=== PATIENT | female | born 1970 | race Caucasian/White ===

== ENCOUNTER 2018-08-18 13:48 | Emergency (ER) | payer SELFPAY ==
--- NOTE | 2018-08-18 14:13 | ER Document Report ---
ED Medical Screen (RME) - General Chief Complaint: Numbness of Arm Stated Complaint: NUMBNESS IN ARM, HAND AND FINGERS Time Seen by Provider: 08/18/18 14:04 Primary Care Provider: ADRY LEGGETT MD [Primary Care Provider] - Follow up as needed TRAVEL OUTSIDE OF THE [place] IN LAST 30 DAYS: No - HPI Notes: 08/18/18 14:10 Patient is a 47-year-old female who presents the emergency department complaining of right shoulder, arm, back, and leg tingling and occ pain. Patient states that this is been an ongoing intermittent issue for the past 6 months and was told that she may have a pinched nerve, but has not been formally diagnosed. Patient states that she had an acute episode this morning where she could not move the right arm very well, which has returned to baseline. No other concerns or complaints. She was started back on gabapentin by her family provider. Denies DELGADO, fever, neck pain, URI, CP, SOB, Abd pain, or rash. I have treated and performed a rapid initial assessment of this patient. A comprehensive ED assessment and evaluation of the patient, analysis of test results and completion of medical decision making process will be conducted by additional ED providers. PHYSICAL EXAMINATION: GENERAL: Well-appearing, well-nourished and in no acute distress. A&Ox4. Answers questions appropriately. HEAD: Atraumatic, normocephalic. Non-tender. EYES: Pupils equal round and reactive to light, extraocular movements intact, sclera anicteric, conjunctiva are normal. No nystagmus. ENT: Nares patent and without discharge. oropharynx clear without exudates. No tonsilar hypertrophy or erythema. Moist mucous membranes. NECK: Normal range of motion, supple without lymphadenopathy. No rigidity/meningismus. No midline tenderness. LUNGS: Breath sounds clear to auscultation bilaterally and equal. No wheezes rales or rhonchi. HEART: Regular rate and rhythm without murmurs, rubs, gallops. Musculoskeletal: Ext's b/l: FROM to passive/active. Strength 5+/5. No deficits noted. No bony tenderness of extremities. + reproducible tenderness to palp rt trapezius muscle and rt paraspinal mm of length of back. Extremities: No cyanosis, clubbing, or edema b/l. Peripheral pulses 2+. Capillary refill less than 2 seconds. NEUROLOGICAL: NIH 0. GCS 15. Cranial nerves grossly intact. Normal speech, normal gait. Normal sensory, motor exams. Reflexes 2+ b/l. BRODERICK's negative. Pronator drift negative. Heel/brito, finger/nose wnl. PSYCH: Normal mood, normal affect. SKIN: Warm, Dry, normal turgor, no rashes or lesions noted. - Related Data Allergies/Adverse Reactions: morphine [Morphine] Adverse Reaction (Verified 06/10/14 17:04) itching Past Medical History Past Surgical History: Reports: Hx Section, Hx Thyroid Surgery Physical Exam - Vital signs Vitals: Temp Pulse Resp BP Pulse Ox 98.0 F 79 16 123/88 H 95 08/18/18 14:00 08/18/18 14:00 08/18/18 14:00 08/18/18 14:00 08/18/18 14:00 Course - Vital Signs Vital signs: Temp Pulse Resp BP Pulse Ox 98.0 F 79 16 123/88 H 95 08/18/18 14:00 08/18/18 14:00 08/18/18 14:00 08/18/18 14:00 08/18/18 14:00 Doctor's Discharge - Discharge Referrals: ADRY LEGGETT MD [Primary Care Provider] - Follow up as needed
--- NOTE | 2018-08-18 15:04 | RADIOLOGY REPORT (SQ) ---
EXAM DESCRIPTION: CT HEAD WITHOUT COMPLETED DATE/TIME: 08/18/2018 2:51 pm REASON FOR STUDY: rt side tingling COMPARISON: None. TECHNIQUE: Axial images acquired through the brain without intravenous contrast. Images reviewed wi th bone, brain and subdural windows. Images stored on PACS. All CT scanners at this facility use dose modulation, iterative reconstruction, and/or weight based d osing when appropriate to reduce radiation dose to as low as reasonably achievable (ALARA). [facility]: Dose Right [facility]: CareDose [facility]: Dose Right [facility]: Teradose 4D [facility]: Smart [employer] Systems RADIATION DOSE: CT Rad equipment meets quality standard of care and radiation dose reduction techniq ues were employed. CTDIvol: 53.2 mGy. DLP: 1097 mGy-cm. mGy. LIMITATIONS: None. FINDINGS: VENTRICLES: Normal size and contour. CEREBRUM: No masses. No hemorrhage. No midline shift. No evidence for acute infarction. Normal gra y/white matter differentiation. No areas of low density in the white matter. CEREBELLUM: No masses. No hemorrhage. No alteration of density. No evidence for acute infarction. EXTRAAXIAL SPACES: No fluid collections. No masses. ORBITS AND GLOBE: No intra- or extraconal masses. Normal contour of globe without masses. CALVARIUM: No fracture. PARANASAL SINUSES: No fluid or mucosal thickening. SOFT TISSUES: No mass or hematoma. OTHER: No other significant finding. IMPRESSION: No acute intracranial findings. EVIDENCE OF ACUTE STROKE: NO. COMMENT: Quality ID # [id number]: Final reports with documentation of one or more dose reduction techniques (e.g., Automated exposure control, adjustment of the mA and/or kV according to patient size, use of iterative reconstruction technique) TECHNICAL DOCUMENTATION: JOB ID: [id number] [place]-72 2010 [employer]- All Rights Reserved Reading location - IP/workstation name: [employer]
[2018-08-18] MEDS ORDERED: KETOROLAC TROMETHAMINE 60 MG/2 ML SDV IM ONE (16:07)
[2018-08-18] MEDS ORDERED: DEXAMETHASONE SOD PHOS INJ 10 MG/1 ML VIAL IM ONE (16:07)
--- NOTE | 2018-08-18 16:13 | ER Document Report ---
ED General - General Chief Complaint: Numbness of Arm Stated Complaint: NUMBNESS IN ARM, HAND AND FINGERS Time Seen by Provider: 08/18/18 14:04 Primary Care Provider: ADRY LEGGETT MD [NO LOCAL MD] - Follow up as needed Mode of Arrival: Ambulatory Information source: Patient Notes: Patient is a 47-year-old female who comes emergency room complaining of neck pain radiating down the right arm and low back pain radiating down the right leg. Patient admits that she has a history of right neck pain and she also admits that she has a history of low back pain and that she is just recently started a job working at [employer] made at [employer]. She is moving a bed a couple days ago when this pain started to get worse. She admits that she is probably got to the point her life that she can do this type work anymore. She missed yesterday and today at work and she is here today because of the pain and discomfort. She also states that she does take gabapentin 300 mg 3 times a day for her cervical radiculopathy. TRAVEL OUTSIDE OF THE [place] IN LAST 30 DAYS: No - HPI Onset: Other - 3 days ago Onset/Duration: Gradual, Persistent, Worse Quality of pain: Cramping, Sharp, Stabbing Severity: Moderate Pain Level: 3 Associated symptoms: denies: Drooling, Earache, Headache, Leg swelling, Nausea, Shortness of breath, Weakness Exacerbated by: Standing, Walking Relieved by: Denies Similar symptoms previously: Yes Recently seen / treated by doctor: No - Related Data Allergies/Adverse Reactions: morphine [Morphine] Adverse Reaction (Verified 06/10/14 17:04) itching Past Medical History - General Information source: Patient - Social History Smoking Status: Current Every Day Smoker Cigarette use (# per day): Yes - Half-pack a day Chew tobacco use (# tins/day): No Smoking Education Provided: Yes Frequency of alcohol use: Occasional Drug Abuse: None Lives with: Alone Family History: None, Reviewed & Not Pertinent Patient has suicidal ideation: No Patient has homicidal ideation: No Renal/ Medical History: Denies: Hx Peritoneal Dialysis Past Surgical History: Reports: Hx Section, Hx Thyroid Surgery Review of Systems - Review of Systems Constitutional: No symptoms reported EENT: No symptoms reported Cardiovascular: No symptoms reported Respiratory: No symptoms reported Gastrointestinal: No symptoms reported Genitourinary: No symptoms reported Female Genitourinary: No symptoms reported Musculoskeletal: See HPI, Back pain, Joint pain, Muscle pain, Neck pain Skin: No symptoms reported Hematologic/Lymphatic: No symptoms reported Neurological/Psychological: See HPI, Anxiety. denies: Paralysis -: Yes All other systems reviewed and negative Physical Exam - Vital signs Vitals: Temp Pulse Resp BP Pulse Ox 98.0 F 79 16 123/88 H 95 08/18/18 14:00 08/18/18 14:00 08/18/18 14:00 08/18/18 14:00 08/18/18 14:00 Interpretation: Normal - Notes Notes: PHYSICAL EXAMINATION: GENERAL: Patient is well-nourished well-developed 47-year-old female is in no apparent distress on physical examination today. She does present though has been very uncomfortable and having difficult time finding a position of comfort. HEAD: Atraumatic, normocephalic. EYES: Pupils equal round and reactive to light, extraocular movements intact, conjunctiva are normal. ENT: Nares patent, patient has multiple spikes in the oral cavity in place of her teeth where she is having implants placed.. NECK: Examination 1 area of concern is her neck. Patient is wearing around her neck large 2-3 Landers with a rubberized ball held in a bag multiple keys and is just to name a few. Inspection of the cervical spine show patient has paravertebral tenderness around the posterior portion and distal portion of the cervical spine around C6 C7-T1. Patient also displays moderate amount of tenderness going across the trapezius on the right side. Cervical compression also shows the patient has cervical radiculopathy present with pain and numbness shooting down the right arm with compression of the cervical spine. Patient also displays some moderate tenderness with spasms noted along the right scapular border to palpation. There is some very tender areas noted as far as palpation along that area is concerned. LUNGS: Breath sounds clear to auscultation bilaterally and equal. No wheezes rales or rhonchi. HEART: Regular rate and rhythm without murmurs ABDOMEN: Soft, nontender, nondistended abdomen. No guarding, no rebound. No masses appreciated. Female : deferred Musculoskeletal: Normal range of motion, no pitting or edema. No cyanosis. Moving to the lower back patient has positive straight leg raises on the right side only to about 10 degrees. DTRs in the lower extremities are normal. Patient has tenderness to palpation in the right buttocks around deep ballottement of the sciatic notch. Palpation of this area since pain and discomfort down the leg. Further examination of the area shows patient has good strength against resistance in all directions with patient sitting and knees extension flexion as well as inversion and eversion show good strength results.\ NEUROLOGICAL: Normal speech, normal gait. Normal sensory, motor exams PSYCH: Normal mood, normal affect. SKIN: Warm, Dry, normal turgor, no rashes or lesions noted. Course - Re-evaluation Re-evalutation: 08/18/18 16:22 Patient's presentation was not 1 of a stroke type presentation. This is been going on and off for about 6 months she had a contributing factor III days ago that she remembered moving a canelo size bed. 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 Sodium she is missed 2 days of work and is here to get a evaluation so she can discuss with them her options of working part-time instead of full-time. This patient explained to me personally. So at this time I will give the patient a shot of Toradol and some steroids I am going to place her on steroids and muscle relaxer and she can follow-up with her primary care sometime this week. - Vital Signs Vital signs: Temp Pulse Resp BP Pulse Ox 98.0 F 79 16 123/88 H 95 08/18/18 14:00 08/18/18 14:00 08/18/18 14:00 08/18/18 14:00 08/18/18 14:00 Discharge - Discharge Clinical Impression: Cervical radiculopathy, Sciatica of right side Condition: Good Disposition: HOME, SELF-CARE Instructions: Neck Injury (Cervical Strain) ([facility]), Sciatica ([facility]) Additional Instructions: Home tonight rest. Medication as prescribed. As we discussed ice to the area 3 times a day and or you may alternate ice and moist heat. Light stretching starting tomorrow. Highly suggest that you establish with a primary care and t ry to avoid lifting or moving anything heavy for the next week. You can return to work on Sunday light duty. Prescriptions: Cyclobenzaprine HCl [Flexeril 10 mg Tablet] 10 mg PO TID #21 tablet Prednisone 10 mg PO ASDIR PRN #1 tab.ds.pk PRN Reason: Forms: Return to Work, Smoking Cessation Education, Special Work Note Referrals: ADRY LEGGETT MD [NO LOCAL MD] - Follow up as needed
[2018-08-18 16:49] VITALS: BP 124/84
== END 2018-08-18 16:49 | disposition home or self-care (01) ==
LOC: ER 13:48
DX: M54.12 Radiculopathy, cervical region (principal); M54.31 Sciatica, right side; R20.0 Anesthesia of skin; F17.210 Nicotine dependence, cigarettes, uncomplicated; Z88.6 Allergy status to analgesic agent
CPT/HCPCS: 99283; 96372; 70450; J1885; J1100

== ENCOUNTER 2019-10-22 10:40 | Emergency (ER) | payer SELFPAY ==
[2019-10-22] MEDS ORDERED: KETOROLAC TROMETHAMINE 60 MG/2 ML SDV IM ONE (11:08)
[2019-10-22] MEDS ORDERED: DEXAMETHASONE SOD PHOS INJ 10 MG/1 ML VIAL IM ONE (11:08)
--- NOTE | 2019-10-22 11:12 | ER Document Report ---
HPI - HPI Patient complains to provider of: Chronic back pain Time Seen by Provider: 10/22/19 11:02 Onset: Other - Intermittent over the last year Onset/Duration: Waxing and waning Quality of pain: Stabbing Severity: Moderate Pain Level: 3 Context: 48-year-old female presented to ED for back pain that is she has had for well over a year. She states she was instructed to go back to work 7 days ago after doing multiple therapies and physical therapy and everything else and she is only been on the job 7 days and she is already having too much pain to go back to work. She is alert oriented respirations regular and unlabored speaking in full sentences she is able to walk with even steady gait. She does have range of motion to her shoulders. Patient states she has muscle relaxers at home. She states in the past when she is gotten Toradol and Decadron she has been able to move much better. Associated Symptoms: Other - Complaining of back and muscle pains Exacerbated by: Standing, Movement, Walking Relieved by: Denies Similar symptoms previously: Yes Recently seen / treated by doctor: Yes - ROS ROS below otherwise negative: Yes - CONSTITUTIONAL Constitutional: DENIES: Fever, Chills - EENT EENT: DENIES: Sore Throat, Ear Pain, Nasal Drainage-Clear, Nasal Drainage- Purulent, Congestion, Eye problems - NEURO Neurology: DENIES: Headache, Weakness, Vision blurred, Dizzinesss / Vertigo - CARDIOVASCULAR Cardiovascular: DENIES: Chest pain - RESPIRATORY Respiratory: DENIES: Trouble Breathing, Coughing - GASTROINTESTINAL Gastrointestinal: DENIES: Abdominal Pain, Nausea, Patient vomiting, Diarrhea, Constipation, Black / Bloody Stools - URINARY Urinary: DENIES: Dysuria, Urgency, Frequency - REPRODUCTIVE Reproductive: DENIES: :, Postmenopausal, Abnormal bleeding / discharge - MUSCULOSKELETAL Musculoskeletal: REPORTS: Extremity pain, Back Pain - DERM Skin Color: Normal Skin Problems: None Past Medical History - General Information source: Patient - Social History Smoking Status: Former Smoker Chew tobacco use (# tins/day): No Frequency of alcohol use: None Drug Abuse: None Lives with: Family Family History: None, Reviewed & Not Pertinent Patient has homicidal ideation: No - Past Medical History Cardiac Medical History: Reports: None Pulmonary Medical History: Reports: None EENT Medical History: Reports: None Neurological Medical History: Reports: None Endocrine Medical History: Reports: None Renal/ Medical History: Reports: None Malignancy Medical History: Reports: Other - Thyroid cancer GI Medical History: Reports: None Musculoskeletal Medical History: Reports Hx Musculoskeletal Deformity, Reports Hx Musculoskeletal Trauma Skin Medical History: Reports None Psychiatric Medical History: Reports: None Traumatic Medical History: Reports: None Infectious Medical History: Reports: None Past Surgical History: Reports: Hx Section, Hx Thyroid Surgery - Immunizations Immunizations up to date: Yes Hx Diphtheria, Pertussis, Tetanus Vaccination: Yes Vertical Provider Document - CONSTITUTIONAL Agree With Documented VS: Yes Exam Limitations: No Limitations - INFECTION CONTROL TRAVEL OUTSIDE OF THE [place] IN LAST 30 DAYS: No - HEENT HEENT: Atraumatic, Normal ENT Exam, Normocephalic, PERRLA - NECK Neck: Normal Inspection, Supple - RESPIRATORY Respiratory: Breath Sounds Normal, No Respiratory Distress, Chest Non-Tender - CARDIOVASCULAR Cardiovascular: Regular Rate, Regular Rhythm, No Murmur - GI/ABDOMEN Gastrointestinal: Abdomen Soft, Abdomen Non-Tender, No Organomegaly, Normal Bowel Sounds - BACK Notes: Tenderness to the back as she always has. She denies any signs or symptoms of cauda equina, she has no loss control of bowel bladder no saddle anesthesia no loss of control or sensation to the lower extremities. She states she sometimes gets numbness when she stands too long on her legs but this is not a constant problem. - MUSCULOSKELETAL/EXTREMETIES Musculoskeletal/Extremeties: SARAH HAGER, Tender - Back tenderness - NEURO Level of Consciousness: Awake, Alert, Sedated Motor/Sensory: No Motor Deficit, No Sensory Deficit, No Pronator Drift Course - Re-evaluation Re-evalutation: 10/22/19 22:42 She states she has been working for the last 7 days and now she has numbness to the legs and arms whenever she stands for too long. She has no signs or symptoms of cauda equina, she has no vision loss control her arms or legs. She has equal enamel drier into both hands. She has full range of motion to her arms and legs. She states that she has had multiple therapies she has been to her doctor recently and is just that when she started working the pain came back and was much worse. She states she cannot stay and do a lot of testing because this is not necessary and she has a neurologist. She stated that in the past Toradol and Decadron injections have helped her and she has her medications at home. - Vital Signs Vital signs: Temp Pulse Resp BP Pulse Ox 98.3 F 75 18 130/73 H 98 10/22/19 10:49 10/22/19 10:44 10/22/19 10:44 10/22/19 10:44 10/22/19 10:44 Discharge - Discharge Clinical Impression: Chronic neck and back pain, Neuropathy Condition: Stable Disposition: HOME, SELF-CARE Additional Instructions: Chronic Pain Control Stress, inactivity, and depression make pain more severe regardless of the cause of the pain. Stress and poor physical condition can cause pain such as headaches and backache. Relaxation: Rest in a quiet place with your eyes closed for 20 minutes twice daily. Concentrate on a pleasant image, or simply "feel" your breathing. Clear your mind. Stress management: Deal with your "stressors." Either take action, or eliminate the stressor from your life. Don't let things hang over you. Accept those things you can't change. Nutrition: Eat small, balanced meals -- don't skip, don't overeat. Meals should be high-carbohydrate, low-sugar, low-fat. Exercise: Exercise helps painful conditions and eases stress. Get 30 minutes of moderate exercise, five days a week. Do an activity that does not flare your pain. Precautions: Pain which continues to disrupt daily activities, or which changes in nature, requires a medical evaluation. Pain Clinic referral is available. We do not manage chronic pain in the Emergency Department. We will try to appropriately help you through an acute flare of your chronic painful condition, but for on-going chronic pain that does not improve, you will need to see your private doctor or structural steel painter. We do not provide repeated medication management of chronic painful conditions. If you wish, we can provide the name of local pain management physicians. Chronic Back Pain Chronic back pain (pain persisting longer than three months) is a common problem. A medical evaluation can look for herniated disc, arthritis, osteoporosis, tumors, and infections. But at least half the time, there's no obvious treatable cause. Anxiety and depression tend to worsen back pain. Ibuprofen or other anti-inflammatory medicine can help. A heating pad, used for 15-20 minutes at a time, can ease pain. For this type of back pain, narcotic medicines should be avoided. Muscle relaxers are rarely helpful unless you're having spasms. Activity is important. Find an aerobic exercise program that your back can tolerate. Too much rest makes back pain worse. Specific back exercises are usually prescribed to strengthen the back and abdominal muscles. Often, a physical therapist can help. Avoid heavy lifting, working while bent over, or standing with both knees straight. Most back pain patients do better with a firm mattress. If new symptoms of a "herniated disc" (radiation of pain, numbness, or tingling down the back of the leg or weakness in the leg) occur, you should be re-examined. ICE PACKS: Apply ice packs frequently against the painful area. Many different schedules are recommended, such as "20 minutes on, 20 minutes off" or "one hour ice, two hours rest." If you need to work, you may need to go longer between ice treatments. You should plan to have the area ice packed AT LEAST one fourth of the time. The ice should be applied over the wrap, tape, or splint, or over a layer of cloth -- not directly against the skin. Some ice bags have a built-in cloth and can be put directly on the skin. WARM PACKS: After approximately two days, apply gentle heat (such as a heating pad or hot water bottle) for about 20 to 30 minutes about every two hours -- at least four times daily. Warmth and elevation will help you make a more rapid recovery, and will ease the pain considerably. Do not use HOT heat, and never apply heat for longer than 30 minutes. The continuous heat can invisibly damage skin and muscles -- even when no burn is seen on the surface. Damaged muscles can make you MORE sore. Stretching Exercises for the Back The physician has recommended that you begin stretching exercises for your back. These are often used even while the back is painful. However, you should notify the physician if the activities seem to increase your pain. PELVIC TILT: Lie flat on your back with knees bent. Tighten your stomach and buttock muscles so it flattens your lower back against the floor. Hold 10 seconds. Repeat 10 times, twice daily. KNEE RAISE: Lying on the back with knees bent, raise one knee to your chest, then the other. Hold both knees against the chest 10 seconds, then lower one knee at a time. Repeat 10 times, twice daily. PARTIAL TRUNK RAISE: Lie face down, arms at your sides. Keeping your waist on the floor, use your arms raise your chest up. Support yourself on your elbows for 30 seconds. Repeat twice daily, increasing the time to two minutes as you recover. Toradol Injection You have been given an injection of ketorolac tromethamine (Toradol). This is an excellent, safe drug for pain control. It also has potent antiinflammatory action. You should have significant pain relief within about one hour. Toradol is not addicting and is non-sedating. It does not interfere with driving or work. Call or return if you develop itching, hives, shortness of breath, or rash. Stretching Exercises for the Back The physician has recommended that you begin stretching exercises for your back. These are often used even while the back is painful. However, you should notify the physician if the activities seem to increase your pain. PELVIC TILT: Lie flat on your back with knees bent. Tighten your stomach and buttock muscles so it flattens your lower back against the floor. Hold 10 seconds. Repeat 10 times, twice daily. KNEE RAISE: Lying on the back with knees bent, raise one knee to your chest, then the other. Hold both knees against the chest 10 seconds, then lower one knee at a time. Repeat 10 times, twice daily. PARTIAL TRUNK RAISE: Lie face down, arms at your sides. Keeping your waist on the floor, use your arms raise your chest up. Support yourself on your elbows for 30 seconds. Repeat twice daily, increasing the time to two minutes as you recover. Exercise Program for the Shoulder Since the shoulder moves in so many directions, the joint attachment is weak. Muscles provide most of the stability to the shoulder. You must exercise your shoulder to prevent painful instability or stiffening. PASSIVE - These may be begun within a few days of the injury. While standing, lean forward, allowing the arm to hang down towards the floor. Move the arm in small circles while slowly twisting your chest towards and away from the hanging arm. Do this for one minute. ACTIVE - These may be performed when the doctor gives permission. Begin with the arms at the sides. Raise the arms forward (shoulder's width apart) until they reach shoulder level. Then slowly swing both arms back until they are aiming straight out away from each other. Then bring them forward again, and finally, lower them to your sides. Repeat 20 to 30 times. As you improve, put weights in your hands for the exercise. Start with one pound, and work up to 10 pounds. Never use more than is comfortable. Athletes may work up to 30 pounds. FOLLOW-UP CARE: If you have been referred to a physician for follow-up care, call the physicians office for an appointment as you were instructed or within the next two days. If you experience worsening or a significant change in your symptoms, notify the physician immediately or return to the Emergency Department at any time for re-evaluation. Forms: Elevated Blood Pressure, Smoking Cessation Education, Return to Work
[2019-10-22 11:44] VITALS: BP 128/80
== END 2019-10-22 11:43 | disposition home or self-care (01) ==
LOC: ER 10:40
DX: G62.9 Polyneuropathy, unspecified (principal); M54.2 Cervicalgia; M54.9 Dorsalgia, unspecified; G89.29 Other chronic pain; M79.10 Myalgia, unspecified site; Z79.899 Other long term (current) drug therapy; Z87.891 Personal history of nicotine dependence
CPT/HCPCS: 99283; 96372; J1885; J1100

== ENCOUNTER 2019-11-23 12:02 | Emergency (ER) | payer SELFPAY ==
[2019-11-23] MEDS ORDERED: NORMAL SALINE 1000 ML 1,000 ML IV ONE (13:23)
--- NOTE | 2019-11-23 13:27 | ER Document Report ---
ED General - General Chief Complaint: General Weakness Stated Complaint: HEADACHE,NAUSEA,WEAKNESS Notes: Patient is a 49-year-old white female with a history of thyroidectomy status post thyroid cancer with mets to the sternum who presents to the emergency department with a chief complaint of generalized weakness. 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 She states she was on oxygen for a while but "weaned myself off" b ecause she did not want to use it anymore. She admits to smoking marijuana. She states that this morning after getting out of the shower she just felt generally weak. States she felt fatigued. Says that she noticed 2 lesions and are unsure if they are related, 1 to the top of the scalp and one to the left anterior shoulder that are raised, nonpruritic or painful. She reports that "I could barely drive myself here", qualifying the weakness. She denies any other associated symptoms. She adds that she delivers pizza for a living and has minimal contact with the public but does come into contact to some degree. She denies any recent travel. No known exposures to COVID-19. No fever, cough, shortness of breath, abdominal pain, vomiting, diarrhea. TRAVEL OUTSIDE OF THE [place] IN LAST 30 DAYS: No - Related Data Allergies/Adverse Reactions: morphine [Morphine] Adverse Reaction (Verified 10/22/19 10:47) itching Past Medical History - Social History Smoking Status: Unknown if Ever Smoked Family History: None, Reviewed & Not Pertinent Renal/ Medical History: Denies: Hx Peritoneal Dialysis Musculoskeletal Medical History: Reports Hx Musculoskeletal Deformity, Reports Hx Musculoskeletal Trauma Past Surgical History: Reports: Hx Section, Hx Thyroid Surgery - Immunizations Immunizations up to date: Yes Hx Diphtheria, Pertussis, Tetanus Vaccination: Yes Review of Systems - Review of Systems Constitutional: Weakness. denies: Fever EENT: denies: Throat pain Cardiovascular: denies: Chest pain Respiratory: denies: Short of breath Gastrointestinal: denies: Abdominal pain Genitourinary: denies: Dysuria Female Genitourinary: denies: Irregular period Musculoskeletal: denies: Back pain Skin: Lesions Hematologic/Lymphatic: denies: Easy bleeding Neurological/Psychological: denies: Headaches Physical Exam - Vital signs Vitals: Temp Pulse Resp BP Pulse Ox 97.7 F 68 20 110/67 97 11/23/19 12:10 11/23/19 12:10 11/23/19 12:10 11/23/19 12:10 11/23/19 12:10 - General General appearance: Appears well, Alert In distress: None - HEENT Head: Normocephalic, Atraumatic Eyes: Normal Conjunctiva: Normal Extraocular movements intact: Yes Eyelashes: Normal Pupils: PERRL Ears: Normal External canal: Normal Tympanic membrane: Normal Nasal: Normal Mouth/Lips: Normal Mucous membranes: Normal Pharynx: Normal Neck: Normal, Supple - Respiratory Respiratory status: No respiratory distress Chest status: Nontender Breath sounds: Normal Chest palpation: Normal - Cardiovascular Rhythm: Regular Heart sounds: Normal auscultation - Abdominal Inspection: Normal Distension: No distension Bowel sounds: Normal Tenderness: Nontender Organomegaly: No organomegaly - Extremities General upper extremity: Normal inspection, Nontender, Normal color, Normal ROM, Normal temperature General lower extremity: Normal inspection, Nontender, Normal color, Normal ROM, Normal temperature, Normal weight bearing. No: Nishant's sign - Neurological Neuro grossly intact: Yes Cognition: Normal Orientation: AAOx4 Willard Coma Scale Eye Opening: Spontaneous Royal Coma Scale Verbal: Oriented Royal Coma Scale Motor: Obeys Commands Royal Coma Scale Total: 15 Speech: Normal Cranial nerves: Normal Cerebellar coordination: Normal Motor strength normal: LUE, RUE, LLE, RLE Additional motor exam normals: Equal roving department end finder Sensory: Normal - Psychological Associated symptoms: Normal affect, Normal mood - Skin Skin Temperature: Warm Skin Moisture: Dry Skin Color: Other - Raised slightly erythematous lesion to the left superior shoulder appears like 3 small elevated lesions clustered together, nonspecific in appearance. No evidence of excoriation. Nontender. No drainage. Raised area felt to the top of the scalp, no color change. Course - Re-evaluation Re-evalutation: 11/23/19 15:02 EKG with a sinus arrhythmia otherwise unremarkable, no acute findings per attending evaluation. Work-up unremarkable. Chest x-ray negative for acute process per radiologist. No acute emergency pathology identified. Patient is moving all extremities well. Has a normal neurological exam with full perceived strength. She does have the objective findings of the unexplained rash she will use hydrocortisone cream on a monitor. She will call her primary doctor in the morning for reevaluation. Advised that she return here any ER immediately with any new, persistent or worsening symptoms. She verbalized understood and agreed. - Vital Signs Vital signs: Temp Pulse Resp BP Pulse Ox 97.7 F 68 20 110/67 97 11/23/19 12:10 11/23/19 12:10 11/23/19 12:10 11/23/19 12:10 11/23/19 12:10 - Laboratory Result Diagrams: 11/23/19 13:15 11/23/19 13:15 Laboratory results interpreted by me: 11/23/19 11/23/19 13:15 13:15 RDW 16.3 H Sodium 135.4 L Creatinine 0.40 L Discharge - Discharge Clinical Impression: Generalized weakness Condition: Stable Disposition: HOME, SELF-CARE Instructions: Weakness ([facility]) Additional Instructions: Please call your primary doctor tomorrow for follow-up. Please return here any ER immediately with any new, persistent or worsening symptoms.
[2019-11-23 13:38] LABS: ABSOLUTE EOSINOPHILS # (AUTO) 0.1 10^3/uL (0.0-0.6); ABSOLUTE LYMPHOCYTES (AUTO) 1.3 10^3/uL (0.5-4.7); ABSOLUTE MONOCYTES (AUTO) 0.5 10^3/uL (0.1-1.4); ABSOLUTE NEUT (AUTO) 2.9 10^3/uL (1.7-8.2); BASOPHILS % (AUTO) 0.6 % (0-2); EOSINOPHILS % (AUTO) 1.3 % (0-6); HEMATOCRIT 39.1 % (36.0-47.0); HEMOGLOBIN 12.8 g/dL (12.0-15.5); LYMPHOCYTES % (AUTO) 27.6 % (13-45); MEAN CORPUSCULAR HEMOGLOBIN 28.2 pg (27.0-33.4); MEAN CORPUSCULAR HGB CONC 32.7 g/dL (32.0-36.0); MEAN CORPUSCULAR VOLUME 86 fl (80-97); MONOCYTES % (AUTO) 11.2 % (3-13); PLATELET COUNT 268 10^3/uL (150-450); RED BLOOD COUNT 4.53 10^6/uL (3.72-5.28); RED CELL DISTRIBUTION WIDTH 16.3 % (11.5-14.0); SEGMENTED NEUTROPHILS % (AUTO) 59.3 % (42-78); TOTAL CELLS COUNTED % (AUTO) 100 %; WHITE BLOOD COUNT 4.8 10^3/uL (4.0-10.5)
[2019-11-23 13:43] LABS: INTERNATIONAL RATION (INR) 0.94; PROTHROMBIN TIME 12.6 SEC (11.4-15.4)
[2019-11-23 13:44] LABS: PARTIAL THROMBOPLASTIN TIME 30.6 SEC (23.5-35.8)
[2019-11-23 13:56] LABS: ALBUMIN 3.8 g/dL (3.5-5.0); ALKALINE PHOSPHATASE 43 U/L (38-126); ANION GAP 6 (5-19); ASPARTATE AMINO TRANSFERASE 27 U/L (14-36); BILIRUBIN,DIRECT 0.1 mg/dL (0.0-0.4); BILIRUBIN,TOTAL 0.5 mg/dL (0.2-1.3); BLOOD UREA NITROGEN 11 mg/dL (7-20); CALCIUM 8.5 mg/dL (8.4-10.2); CARBON DIOXIDE 23 mmol/L (22-30); CHLORIDE 106 mmol/L (98-107); CREATINE KINASE 33 U/L (30-135); GLUCOSE 97 mg/dL (75-110); PHOSPHORUS 4.1 mg/dL (2.5-4.5); POTASSIUM 4.5 mmol/L (3.6-5.0); TOTAL PROTEIN 6.9 g/dL (6.3-8.2)
--- NOTE | 2019-11-23 13:57 | RADIOLOGY REPORT (SQ) ---
EXAM DESCRIPTION: CHEST SINGLE VIEW IMAGES COMPLETED DATE/TIME: 11/23/2019 12:38 pm REASON FOR STUDY: weakness COMPARISON: None. EXAM PARAMETERS: NUMBER OF VIEWS: One view. TECHNIQUE: Single frontal radiographic view of the chest acquired. RADIATION DOSE: NA LIMITATIONS: None. FINDINGS: LUNGS AND PLEURA: Elevation of the left hemidiaphragm is stable from previous examination. No focal consolidation or pleural effusion. No pneumothorax. MEDIASTINUM AND HILAR STRUCTURES: No masses. Contour normal. HEART AND VASCULAR STRUCTURES: Heart normal in size. Normal vasculature. BONES: No acute findings. HARDWARE: Postoperative clips in the mediastinum. OTHER: No other significant finding. IMPRESSION: No acute cardiopulmonary disease. TECHNICAL DOCUMENTATION: JOB ID: [id number] 2010 [employer]- All Rights Reserved Reading location - IP/workstation name: [email or web address]
--- NOTE | 2019-11-23 14:06 | EKG REPORT ---
SEVERITY:- OTHERWISE NORMAL ECG - SINUS ARRHYTHMIA, RATE [id number] : Confirmed by: Keaton Ramirez MD 23-Nov-2019 14:05:26
[2019-11-23 14:19] LABS: APPEARANCE,URINE CLEAR; BILIRUBIN,URINE NEGATIVE (NEGATIVE); COLOR,URINE STRAW; GLUCOSE, URINE NEGATIVE (NEGATIVE); KETONES,URINE NEGATIVE (NEGATIVE); PROTEIN,URINE NEGATIVE (NEGATIVE); URINE SPECIFIC GRAVITY 1.005; UROBILINOGEN,URINE NEGATIVE mg/dL (<2.0)
[2019-11-23 14:28] LABS: A TYPE INFLUENZA AG NEGATIVE (NEGATIVE); B INFLUENZA AG NEGATIVE (NEGATIVE)
[2019-11-23 16:13] VITALS: BP 128/77
== END 2019-11-23 16:14 | disposition home or self-care (01) ==
LOC: ER 12:02
DX: R53.1 Weakness (principal); R51 Headache; R11.0 Nausea; F12.10 Cannabis abuse, uncomplicated; R53.83 Other fatigue; Z88.8 Allergy status to other drugs, medicaments and biological substances
CPT/HCPCS: 93005; 99285; 96360; 96361; 36415; 82550; 83735; 84100; 85025; 85610; 85730; 80053; 81001; 84484; 87804; 71045; 93010; J7030